=== PATIENT | female | born 1975 | race Caucasian/White ===

== ENCOUNTER 2024-10-29 07:41 | Day surgery (SDC) | payer BC ==
[~2024-10-29] VITALS: Ht 162.6 cm; Wt 53.6 kg
[~2024-10-29 07:41] MED LIST: COQ150CH PO; LIDOCAINE 2% 100 MG/5 ML SDV (FOR ANES.) As Ordered ONE; MAGN200T PO; SEMA1PEN2 SQ; VITA100093 PO; VITA500C22 PO; VITA80004 PO; ZINC50TA4 PO
[2024-10-29 09:30] VITALS: TEMP 98
[2024-10-29 09:50] VITALS: BP 95/45; O2SAT 100
== END 2024-10-29 10:00 | disposition home or self-care (01) ==
LOC: M OPP 07:41
PROVIDERS: ATTEND Internal Medicine Gastroenterology
DX: Z12.11 Encounter for screening for malignant neoplasm of colon (principal); K57.30 Diverticulosis of large intestine without perforation or abscess without bleeding; K64.0 First degree hemorrhoids; K21.00 Gastro-esophageal reflux disease with esophagitis, without bleeding; R12 Heartburn; Z79.85 Long-term (current) use of injectable non-insulin antidiabetic drugs; Z79.899 Other long term (current) drug therapy
CPT/HCPCS: 43239; 45378; 88305; J3010